=== PATIENT | female | born 1965 | race Caucasian/White ===

== ENCOUNTER 2019-06-21 10:09 | Observation (INO) | payer BC ==
[2019-06-21] MEDS ORDERED: Ondansetron PF 4 MG/2 ML Vial ONE (10:36)
[2019-06-21 10:47] LABS: #Basophils 0.1 thou/uL (0.0-0.2); #Eosinphils 0.1 thou/uL (0.0-0.7); #Lymphocytes 1.9 thou/uL (1.20-3.40); %Basophils 0.6 % (0.0-1.0); %Eosinophils 0.5 % (0.0-10.0); %Lymphocytes 14.5 % (21.0-51.0); %Monocytes 7.6 % (0.0-10.0); %Neutrophils 76.8 % (42.0-75.0); Hemoglobin 19.2 g/dL (12.0-16.0); Mean Corpuscular HGB CONC 35.5 g/dL (32.0-36.0); Mean Corpuscular Hemoglobin 30.2 pg (27.0-31.0); Mean Corpuscular Volume 85.2 fL (78.0-98.0); Mean Platelet Volume 8.1 fL (7.4-10.4); Platelet Count 338 thou/uL (130-400); RBC Distribution Width 12.1 % (11.5-14.5); Red Blood Cell (RBC) Count 6.37 mill/uL (4.20-5.40)
[2019-06-21 11:19] LABS: ALT (SGPT) 16 U/L (8-55); AST (SGOT) 14 U/L (5-34); Albumin 4.9 g/dL (3.5-5.0); Alkaline Phosphatase 59 U/L (40-110); Anion Gap 34 mmol/L (10-20); BUN (Urea Nitrogen) 27 mg/dL (9.8-20.1); Bilirubin, Total 1.4 mg/dL (0.2-1.2); Calc. Creatinine Clearance 0 mL/min (70-130); Calcium 10.9 mg/dL (7.8-10.44); Carbon Dioxide 11 mmol/L (22-29); Chloride 88 mmol/L (98-107); Estimated GFR-MDRD 42; Globulin 2.9 g/dL (2.4-3.5); Glucose 302 mg/dL (70-105); Lipase 57 U/L (8-78); Potassium 3.5 mmol/L (3.5-5.1); Protein, Total 7.8 g/dL (6.0-8.3); Sodium 129 mmol/L (136-145)
[2019-06-21] MEDS ORDERED: Acetaminophen 325 MG TAB PO PRN (11:35)
[2019-06-21] MEDS ORDERED: Senokot S 8.6-50 MG TAB PO PRN (11:35)
[2019-06-21] MEDS ORDERED: Dextrose 50% Abboject 50 ML SYRINGE SLOW IVP PRN (11:39)
[2019-06-21] MEDS ORDERED: Dextrose 5% in Water 1,000 ML IV PRN (11:39)
[2019-06-21] MEDS ORDERED: Potassium Chloride 20 MEQ TAB ONE (12:00)
[2019-06-21 12:13] LABS: Phosphorus 3.5 mg/dL (2.3-4.7)
[2019-06-21] MEDS ORDERED: Insulin Regular 300 UNITS/3 ML VIAL SC PRN (13:15)
[2019-06-21] MEDS: Sodium Chloride 0.9% 1,000 ML IV SCH ×2 (14:04→20:20)
[2019-06-21] MEDS ORDERED: traZODone HCl 50 MG TAB PO PRN (14:16)
[2019-06-21 14:27] LABS: Lactic Acid 1.8 mmol/L (0.5-2.2)
[2019-06-21] MEDS: Ondansetron PF 4 MG/2 ML Vial IVP PRN (15:31)
--- NOTE | 2019-06-21 16:25 | HP ---
CHIEF COMPLAINT: Nausea and vomiting of 5-day duration. HISTORY OF PRESENT ILLNESS: A 54-year-old female with a history of hyperlipidemia and type 2 diabetes mellitus, had nausea and vomiting of 5-day duration. Initially, she had 3 bowel movements followed by nausea of 5 days duration. No sick contact. No fever or productive cough or general body ache. In the ER, initially, she was tachycardic with pulse of 125. She was normotensive and afebrile. Her lactic acid was 2.5, severely dehydrated, and creatinine 1.3 and hemoconcentrated at hemoglobin of 19.2. She had severe metabolic acidosis. Her blood glucose was 302. She will be admitted for further management. REVIEW OF SYSTEMS: As explained above. She had nausea and vomiting, but no fever. She did not have any headache or blurriness. Her initial diarrhea resolved, but then she was not taking any p.o. intake in the last few days due to nausea sensation. She denied any chest pain, productive cough, orthopnea, PND, or lower extremity edema. No headache or blurriness. No rash in the body. A 13-point review of systems reviewed and pertinent addressed here in the history of present illness. Rest are negative. ALLERGIES: SHE HAS NO KNOWN DRUG ALLERGY. MEDICAL HISTORY: 1. Type 2 diabetes mellitus. 2. Hyperlipidemia. HOME MEDICATIONS: Not updated, but she stated that she is on glipizide, Bydureon, Tradjenta, antidepressant, and trazodone. SOCIAL HISTORY: She smokes daily, less than half a pack a day. No alcohol use. Lives with her family. FAMILY HISTORY: Father of brain tumor. Mother of old age. PHYSICAL EXAMINATION: VITAL SIGNS: Her temperature is 98, pulse is 92, blood pressure 145/76, and saturating 98% on room air. GENERAL: The patient is alert and oriented. She looks very dry, but very pleasant and nontoxic appearing. HEART: Tachycardia with a regular rate and rhythm. LUNGS: Clear to auscultation bilaterally. No wheezing, rales, or rhonchi. ABDOMEN: Soft, nontender, and nondistended. Good bowel sounds. EXTREMITIES: Without any pitting edema or rash. LABORATORY DATA: WBC 13, hemoglobin 19.2, and platelets 338. Chemistry: Total bilirubin of 1.4, sodium 129, potassium 3.5, bicarb is 11, chloride 88, and creatinine 1.3. Lactic acid 2.5. TSH is 0.67. LFTs are in the normal range. IMPRESSION AND PLAN: This is a 54-year-old female, presenting with a systemic inflammatory response syndrome secondary to ketotic hyperglycemia. 1. Metabolic acidosis without diabetic ketoacidosis. 2. Pseudohyponatremia. 3. Hypokalemia. 4. Hemoconcentration secondary to dehydration. 5. Leukocytosis due to stress demargination. 6. Acute kidney injury. 7. Type 2 diabetes mellitus. I believe her presentation is mostly secondary to severe dehydration due to nausea/vomiting, causing hemoconcentration and acute kidney injury. We will challenge with IV fluid and correct the electrolytes as needed. We will repeat the BMP panel this evening. Likely to improve. Meanwhile, we will start her on a sliding scale insulin and hold her glipizide, Bydureon, and Tradjenta for now. Provide her trazodone, home regimen, for bedtime. Hyperbilirubinemia. LFTs are in the normal range. I believe it is probably reflective of dehydration. Rest of the management based on the clinical course. Deep vein thrombosis prophylaxis with Lovenox. Job ID: [id number] MTDD
[2019-06-21] MEDS ORDERED: Insulin Regular 300 UNITS/3 ML VIAL SC SCH (17:00)
[2019-06-21 18:36] LABS: Anion Gap 17 mmol/L (10-20); BUN (Urea Nitrogen) 22 mg/dL (9.8-20.1); Calc. Creatinine Clearance 65 mL/min (70-130); Calcium 8.9 mg/dL (7.8-10.44); Carbon Dioxide 22 mmol/L (22-29); Chloride 99 mmol/L (98-107); Estimated GFR-MDRD 65; Glucose 184 mg/dL (70-105); Potassium 3.8 mmol/L (3.5-5.1); Sodium 134 mmol/L (136-145)
[2019-06-21] MEDS: Mag-Al Plus 1200 MG/1200 MG/120 MG/30 ML UDCUP PO PRN (21:18)
[2019-06-22] MEDS ORDERED: Famotidine/PF 20 mg/2ml Vial SLOW IVP SCH (00:30)
[2019-06-22] MEDS ORDERED: Lidocaine 2% Viscous Solution 10 ML, Aluminum & Magnesium Hydroxide 30 ML SSW SCH ×2 (00:45→19:15)
[2019-06-22] MEDS: Ondansetron PF 4 MG/2 ML Vial IVP PRN ×2 (00:59→15:36)
[2019-06-22 05:02] LABS: Hemoglobin A1c 7.2 % (4.0-6.0)
[2019-06-22 05:07] LABS: #Eosinphils 0.1 thou/uL (0.0-0.7); #Lymphocytes 2.2 thou/uL (1.20-3.40); #Monocytes 0.7 thou/uL (0.11-0.59); #Neutrophils 4.6 thou/uL (1.40-6.50); %Basophils 0.2 % (0.0-1.0); %Eosinophils 1.7 % (0.0-10.0); %Monocytes 8.7 % (0.0-10.0); %Neutrophils 60.5 % (42.0-75.0); Hemoglobin 15.7 g/dL (12.0-16.0); Mean Corpuscular Hemoglobin 30.2 pg (27.0-31.0); Mean Corpuscular Volume 86.3 fL (78.0-98.0); Platelet Count 198 thou/uL (130-400); RBC Distribution Width 11.8 % (11.5-14.5); Red Blood Cell (RBC) Count 5.19 mill/uL (4.20-5.40); White Blood Cell (WBC) Count 7.6 thou/uL (4.8-10.8)
[2019-06-22 05:20] LABS: Anion Gap 13 mmol/L (10-20); BUN (Urea Nitrogen) 19 mg/dL (9.8-20.1); Calc. Creatinine Clearance 77 mL/min (70-130); Calcium 8.1 mg/dL (7.8-10.44); Carbon Dioxide 23 mmol/L (22-29); Chloride 102 mmol/L (98-107); Estimated GFR-MDRD 79; Glucose 167 mg/dL (70-105); Magnesium 1.9 mg/dL (1.6-2.6); Potassium 3.3 mmol/L (3.5-5.1); Sodium 135 mmol/L (136-145)
[2019-06-22] MEDS ORDERED: Insulin Regular 300 UNITS/3 ML VIAL SC PRN ×2 (06:11)
[2019-06-22] MEDS ORDERED: Potassium Chloride 20 MEQ TAB PO SCH (08:45)
[2019-06-22] MEDS ORDERED: FLU VACC QS2019-20(6MOS UP)/PF 60 MCG/0.5 ML SYRINGE IM ONE (09:00)
[2019-06-22 09:22] LABS: CO2 Tension (PvCO2) 21.2 mmHg (40.0-50.0)
[2019-06-22 09:23] LABS: Base Excess-Venous -5.9 mmol/L (-2.0 to 3.0); Bicarbonate (HCO3v) 15.1 mmol/L (22.0-28.0); Calcium, Ionized 1.11 mmol/L (See Comments:); Chloride 94 mmol/L (98-107); Hemoglobin - Calc 17.3 g/dL (12.0-16.0); Potassium 3.3 mmol/L (3.5-5.1); Sodium 126 mmol/L (138-145); T. Carbon Dioxide 15.8 mmol/L (22.0-28.0); vO2 Saturation-calc 67.6 % (60.0-85.0)
--- NOTE | 2019-06-22 12:25 | PDOC.HOSPP ---
- Subjective Encounter Date: 06/22/19 Encounter Time: 08:30 Subjective: pt is sleeping, states that she did not had good rest o/n. but feels better than when she came. lytes are getting better. - Objective Vital Signs & Weight: Vital Signs (12 hours) Temp Pulse Resp BP Pulse Ox 06/22/19 11:58 98.2 F 97 19 154/74 H 100 06/22/19 06:50 97.9 F 83 16 150/82 H 98 06/22/19 04:00 98.7 F 88 16 145/81 H 98 Weight Admit Weight 130 lb Weight 130 lb I&O: 06/21/19 06/22/19 06/23/19 06:59 06:59 06:59 Intake Total 2449 Output Total 700 Balance 1749 Result Diagrams: 06/22/19 04:32 06/22/19 04:32 Hospitalist ROS - Medication Medications: Active Medications Generic Name Dose Route Start Last Admin Trade Name Freq PRN Reason Stop Dose Admin Al Hydroxide/Mg Hydroxide 30 ml 06/21/19 15:52 06/21/19 21:18 Maalox Plus PO 30 ml DAILYPRN PRN Administration Heartburn or Indigestion Insulin Human Regular 0 units 06/22/19 06:11 06/22/19 06:39 Humulin R SC 2 unit .MILD SLIDING SCALE PRN Administration Mild Correctional Scale Ondansetron HCl 4 mg 06/21/19 11:35 06/22/19 00:59 Zofran IVP 4 mg Q6H PRN Administration Nausea/Vomiting Pantoprazole Sodium 40 mg 06/22/19 09:00 06/22/19 08:21 Protonix PO 40 mg DAILY ASPEN Administration - Exam General Appearance: NAD, awake alert Eye: PERRL ENT: normocephalic atraumatic Neck: supple Heart: RRR, normal peripheral pulses Respiratory: CTAB, normal chest expansion Gastrointestinal: soft, normal bowel sounds Hosp A/P - Plan nausea/vomiting Hyperglycemia -n SSI Metabolic acidosis---improved Hyponatremia, pseudo--resolved. Hypokalemia Hemo concn..---reswolved TERRI--resolved Advance the diet monitor for another 24hr, if better, plan for dc in am.
[2019-06-22] MEDS: Mag-Al Plus 1200 MG/1200 MG/120 MG/30 ML UDCUP PO PRN (13:01)
[2019-06-22 15:40] VITALS: BMI 22.4
[2019-06-22] MEDS ORDERED: Promethazine HCl 12.5 MG in Sodium Chloride 0.9% 50 ML IVPB PRN (19:10)
[2019-06-23 04:17] LABS: #Basophils 0.1 thou/uL (0.0-0.2); #Eosinphils 0.1 thou/uL (0.0-0.7); #Lymphocytes 2.5 thou/uL (1.20-3.40); #Monocytes 0.6 thou/uL (0.11-0.59); #Neutrophils 3.7 thou/uL (1.40-6.50); %Eosinophils 1.3 % (0.0-10.0); %Monocytes 8.1 % (0.0-10.0); %Neutrophils 53.7 % (42.0-75.0); Hemoglobin 17.1 g/dL (12.0-16.0); Mean Corpuscular HGB CONC 34.4 g/dL (32.0-36.0); Mean Corpuscular Hemoglobin 29.7 pg (27.0-31.0); Mean Corpuscular Volume 86.4 fL (78.0-98.0); Mean Platelet Volume 8.5 fL (7.4-10.4); Platelet Count 202 thou/uL (130-400); RBC Distribution Width 11.9 % (11.5-14.5); Red Blood Cell (RBC) Count 5.75 mill/uL (4.20-5.40); White Blood Cell (WBC) Count 6.9 thou/uL (4.8-10.8)
[2019-06-23 04:34] LABS: Anion Gap 13 mmol/L (10-20); BUN (Urea Nitrogen) 12 mg/dL (9.8-20.1); Calc. Creatinine Clearance 85 mL/min (70-130); Calcium 8.7 mg/dL (7.8-10.44); Carbon Dioxide 27 mmol/L (22-29); Chloride 101 mmol/L (98-107); Estimated GFR-MDRD 88; Glucose 172 mg/dL (70-105); Sodium 138 mmol/L (136-145)
--- NOTE | 2019-06-23 10:47 | PDOC.HOSPP ---
- Subjective Encounter Date: 06/23/19 Encounter Time: 10:45 Subjective: Ms. Palacio was seen today in follow-up of nausea and vomiting. she says she feels much better today. she was able to tolerate clear liquids this morning. - Objective Vital Signs & Weight: Vital Signs (12 hours) Temp Pulse Resp BP BP Pulse Ox 06/23/19 08:16 98.0 F 102 H 16 146/70 H 99 06/23/19 05:15 99.2 F 104 H 16 138/75 100 06/23/19 00:00 99.1 F 88 16 143/83 H 100 Weight Admit Weight 130 lb Weight 131 lb I&O: 06/22/19 06/23/19 06/24/19 06:59 06:59 06:59 Intake Total 2449 1091 Output Total 700 150 Balance 1749 941 Result Diagrams: 06/23/19 03:37 06/23/19 03:37 Hospitalist ROS - Medication Medications: Active Medications Generic Name Dose Route Start Last Admin Trade Name Freq PRN Reason Stop Dose Admin Al Hydroxide/Mg Hydroxide 30 ml 06/21/19 15:52 06/22/19 13:01 Maalox Plus PO 30 ml DAILYPRN PRN Administration Heartburn or Indigestion Promethazine HCl 12.5 mg/ 50.5 mls @ 202 mls/hr 06/22/19 19:10 06/22/19 21:21 Sodium Chloride IVPB 50.5 mls Q6H PRN Administration Nausea Insulin Human Regular 0 units 06/22/19 06:11 06/22/19 06:39 Humulin R SC 2 unit .MILD SLIDING SCALE PRN Administration Mild Correctional Scale Ondansetron HCl 4 mg 06/21/19 11:35 06/22/19 15:36 Zofran IVP 4 mg Q6H PRN Administration Nausea/Vomiting Pantoprazole Sodium 40 mg 06/22/19 09:00 06/23/19 08:33 Protonix PO 40 mg DAILY ASPEN Administration Trazodone HCl 50 mg 06/21/19 14:16 06/22/19 22:16 Desyrel PO 50 mg HS PRN Administration Insomnia - Exam Eye: PERRL Heart: RRR, no murmur, no gallops, no rubs, normal peripheral pulses Respiratory: CTAB, no wheezes, no rales, no ronchi, normal chest expansion Gastrointestinal: soft, non-tender, non-distended, normal bowel sounds, no palpable masses, no hepatomegaly Extremities: no cyanosis, no edema Hosp A/P (1) Nausea & vomiting Code(s): R11.2 - NAUSEA WITH VOMITING, UNSPECIFIED Status: Acute (2) Polycythemia Code(s): D75.1 - SECONDARY POLYCYTHEMIA Status: Acute (3) Diabetes mellitus type 2 in nonobese Code(s): E11.9 - TYPE 2 DIABETES MELLITUS WITHOUT COMPLICATIONS Status: Acute - Plan * Nausea and vomiting- resolving- this may have been due to a viral illness, or she may have a mild case of gastroparesis- this has improved- will advance her diet. ( She also admits to occasional marijuana use) * DM- blood glucose has improved * Elevated HGB- this has begun to rise again- will check a JAKS mutation- for Polycythemia ( she tells me she does not smoke) and have her follow-up with this as an outpatient . This was discussed with the patient * Hopefully home later today
--- NOTE | 2019-06-23 13:43 | CON ---
DATE OF CONSULTATION: 06/23/2019 REASON FOR CONSULTATION: Persistent nausea and vomiting. HISTORY OF PRESENT ILLNESS: Ms. Rosi Palacio is a very pleasant 54-year-old female with history of diabetes mellitus and hyperlipidemia since 2011. The patient does see Celsa Hall, who works under Dr. Jack Mandel on a regular basis. The patient's diabetes is well controlled. The patient developed nausea, vomiting, and diarrhea a week ago. She had multiple loose stools. She also had nausea and vomiting. She was seen by Dr. Nemesio Groves the following day and was given some medications for diarrhea. Her diarrhea quit subsequently. However, she over the weekend started having nausea and vomiting again. She came to the ER and hospitalized on Friday. Her lab data does show some acidosis. The patient had no abdominal pain, no fever, and no chills. Her diarrhea stopped completely. The patient has had nausea and vomiting since admission. She is on Phenergan IV for nausea and vomiting. She did have nausea and vomiting yesterday. However, since last night, she has had no more nausea and no more vomiting. She is tolerating a diet. She has no abdominal pain whatsoever. No similar episodes in the past. She had no recent travel outside the country. No recent antibiotic intake. Today, she states she is feeling better for the first time and no nausea or vomiting. However, she feels unreal, sleepy, and dizzy and mostly is on medication. She had breakfast this morning and started eating in lunch time. She is eating well. No relevant history. ALLERGIES: NONE. SOCIAL HISTORY: The patient does not smoke or drink alcohol. MEDICAL ILLNESSES: 1. Diabetes mellitus. 2. Hyperlipidemia. 3. No hypertension, heart disease, or lung disease. SURGERIES: Status post appendectomy. FAMILY HISTORY: Father of brain tumor. He had diabetes mellitus. No family history of any IBD, colon cancer, CVS, or heart disease. MEDICATIONS: Reviewed. REVIEW OF SYSTEMS: A 10-point system review is, CONSTITUTIONAL: No history of fever or chills. No weight loss. She has good exercise tolerance. HEAD: No chronic headache. No dizziness. EYES: No impaired vision. No diplopia. EARS: No hearing loss. No ear discharge. NOSE: No nose bleed. THROAT: No sore throat or dysphagia. NECK: No stiffness or limitation of movement. LUNGS: No chronic coughing. No hemoptysis. No dyspnea. CARDIOVASCULAR SYSTEM: No chest pain. No palpitation. No dyspnea, orthopnea, or PND. GASTROINTESTINAL: No nausea, vomiting, or diarrhea. No abdominal pain. No hematochezia. GENITOURINARY: Nonrelevant. MUSCULOSKELETAL: Nonrelevant. NEUROENDOCRINE: Nonrelevant. NEUROPSYCHIATRY: Nonrelevant. PHYSICAL EXAMINATION: GENERAL: She is a very pleasant, woman, appears very comfortable. VITAL SIGNS: Stable and afebrile. Her pulse is 100, blood pressure is 131/70. HEENT: Conjunctivae are clear. NECK: Supple. No adenitis or thyromegaly noted. CARDIOVASCULAR SYSTEM: First and second heart sounds heard. LUNGS: Clear to auscultation. ABDOMEN: Soft and nondistended. Abdomen is nontender. No organomegaly. No masses. EXTREMITIES: Reveal no edema. LABORATORY DATA: From today, WBC has come down to 6900, hemoglobin down to 17.1 from 19.2, hematocrit 49.7, MCV 86.4, platelet count 202,000, polymorphs 53, lymphocytes 36, monocytes 8. Chem panel, her glucose is 172. Lytes are normal except for potassium 3.3, chloride 101, calcium 8.7. CLINICAL IMPRESSION: 1. A 54-year-old woman with diabetes mellitus and hyperlipidemia. She had also nausea, vomiting, and diarrhea. She has no abdominal pain. No history of any fever or chills. The patient's diarrhea resolved after 24 hours. Her nausea and vomiting continued over the weekend. She was hospitalized on Friday and since yesterday evening, she is actually feeling better. She is not having more nausea and more vomiting. No abdominal pain anymore. Abdomen exam is very benign. Based on the history and physical examination, it appears to be mostly a viral illness that is probably the cause of diarrhea, nausea, and vomiting. 2. Diabetes mellitus. 3. Hyperlipidemia. RECOMMENDATIONS: 1. Diet as tolerated. 2. If she is feeling better and no more nausea or vomiting, from GI standpoint, she can go home. If she has recurrence of symptoms, I would be happy to see her back again. If she does well with her nausea and vomiting, she can probably go home tomorrow. I did talk to Ms. Palacio of having a colonoscopy at a later date for colorectal cancer screening. This will be done in the next few months as an outpatient. Job ID: [id number]
[2019-06-23] MEDS ORDERED: Potassium Chloride 20 MEQ TAB PO SCH (15:15)
--- NOTE | 2019-06-23 15:40 | DIS ---
DATE OF ADMISSION: 06/21/2019 DATE OF DISCHARGE: 06/23/2019 DISCHARGE DISPOSITION: Home. DISCHARGE DIAGNOSES: 1. Probable viral gastroenteritis. 2. Elevated hemoglobin, unknown significance. 3. Diabetes mellitus type 2. 4. Hyperlipidemia. 5. Hypokalemia. DISCHARGE MEDICATIONS: Include: 1. Potassium chloride 20 mEq p.o. daily. 2. Magnesium oxide 400 mg p.o. daily. 3. Trazodone 50 mg as needed. 4. Simvastatin 10 mg daily. 5. Promethazine 25 mg p.r.n. 6. Zofran 4 mg q.8h as needed. 7. Tradjenta 5 mg daily. 8. Dapagliflozin 10 mg p.o. daily. 9. Exenatide 2 mg q.7 days. 10. Glipizide 10 mg p.o. daily. CODE STATUS: Full code. ALLERGIES: NO KNOWN DRUG ALLERGIES. HOSPITAL COURSE: Ms. Palacio is a pleasant 54-year-old female, who was admitted to the hospital with complaints of nausea and vomiting for approximately five days. She called her primary care physician, who was concerned about the length of time that she was having her symptoms and recommended that she go to the ER for evaluation. She was admitted and started on IV fluids as well as IV antiemetics. It was noted in her lab work that her hemoglobin was elevated at 19.2. This was thought to be due to hemoconcentration. The following day, it decreased down to 15.7, but after hydration the following day, it went back up to 17.1. In review of her records, approximately a year ago, it was 17.5 in September of 2018. For this reason, we sent off a JAK2 mutation panel, which she will follow up with Dr. Groves in the outpatient setting. It is also noted that the patient denies any smoking history. The nausea and vomiting got better by the third day in the hospital. She was able to tolerate solid diet. On further questioning, the patient admits to using marijuana periodically and it is possible that this could have contributed to her symptoms and also, she is diabetic and may have had some mild gastroparesis, but it felt that this was likely an infectious origin. The patient is being discharged home today to have close followup with Dr. Groves. Job ID: [id number]
[2019-06-23 16:49] VITALS: BP 142/74; TEMP 98.4
--- NOTE | 2019-06-24 11:12 | EKG ---
Test Reason : Blood Pressure : / mmHG Vent. Rate : 106 BPM Atrial Rate : 106 BPM P-R Int : 120 ms QRS Dur : 082 ms QT Int : 428 ms P-R-T Axes : 050 020 075 degrees QTc Int : 568 ms Sinus tachycardia Nonspecific ST abnormality Prolonged QT Abnormal ECG Confirmed by BRAYDON BELLA, YEISON Lambert ([id number]), image editor PHILL TERRY ([id number]) on 06/24/2019 11:12:33 AM Referred By: Confirmed By:YEISON BRYSON MD
== END 2019-06-23 17:01 | disposition home or self-care (01) ==
LOC: ERS 10:09 → ONC 13:32
PROVIDERS: ADMIT Internal Medicine; ATTEND Internal Medicine
DX: R11.2 Nausea with vomiting, unspecified (principal); E87.2 Acidosis; E86.0 Dehydration; E87.6 Hypokalemia; N17.9 Acute kidney failure, unspecified; E11.9 Type 2 diabetes mellitus without complications; E78.5 Hyperlipidemia, unspecified; D72.829 Elevated white blood cell count, unspecified; E78.00 Pure hypercholesterolemia, unspecified; F17.210 Nicotine dependence, cigarettes, uncomplicated; Z79.84 Long term (current) use of oral hypoglycemic drugs; Z79.899 Other long term (current) drug therapy
CPT/HCPCS: 36415; 36416; 80048; 80053; 81270; 82010; 82330; 82803; 83036; 83605; 83690; 83735; 84100; 84443; 85025; 93005; 96361; 96374; 96375; 96376; G0378; J1815; J2405; J2550; S0028

== ENCOUNTER 2021-01-09 11:19 | Outpatient (CLI) | payer BC | END 2021-01-09 11:20 | disposition home or self-care (01) | LOC: BICRAD 11:19 | PROVIDERS: ATTEND Family Medicine | DX: M25.562 Pain in left knee (principal) ==

== ENCOUNTER 2021-02-07 10:38 | Outpatient (CLI) | payer BC | END 2021-02-07 10:39 | disposition home or self-care (01) | LOC: BICMAMMO 10:38 | PROVIDERS: ATTEND Family Medicine | DX: Z12.31 Encounter for screening mammogram for malignant neoplasm of breast (principal); Z80.3 Family history of malignant neoplasm of breast | CPT/HCPCS: 77063; 77067 ==

== ENCOUNTER 2021-08-06 10:26 | Inpatient (IN) | payer BC ==
[~2021-08-06 10:26] MED LIST: Iopamidol-370 76% 500 ML 1 ML ONE
[2021-08-06 11:10] LABS: #Eosinphils 0.1 thou/uL (0.0-0.7); #Lymphocytes 1.4 thou/uL (1.20-3.40); #Monocytes 0.5 thou/uL (0.11-0.59); #Neutrophils 13.6 thou/uL (1.40-6.50); %Basophils 0.3 % (0.0-1.0); %Eosinophils 0.3 % (0.0-10.0); %Lymphocytes 8.7 % (21.0-51.0); %Neutrophils 87.7 % (42.0-75.0); Hemoglobin 16.9 g/dL (12.0-16.0); Mean Corpuscular HGB CONC 33.4 g/dL (32.0-36.0); Mean Corpuscular Hemoglobin 30.4 pg (27.0-31.0); Mean Corpuscular Volume 91.1 fL (78.0-98.0); Mean Platelet Volume 8.3 fL (7.4-10.4); Platelet Count 211 thou/uL (130-400); RBC Distribution Width 11.5 % (11.5-14.5); Red Blood Cell (RBC) Count 5.56 mill/uL (4.20-5.40); White Blood Cell (WBC) Count 15.5 thou/uL (4.8-10.8)
[2021-08-06 11:34] LABS: ALT (SGPT) 25 U/L (8-55); AST (SGOT) 20 U/L (5-34); Albumin 4.5 g/dL (3.5-5.0); Alkaline Phosphatase 53 U/L (40-110); Anion Gap 21 mmol/L (10-20); BUN (Urea Nitrogen) 25 mg/dL (9.8-20.1); Bilirubin, Total 1.4 mg/dL (0.2-1.2); Calc. Creatinine Clearance 0 mL/min (70-130); Calcium 10.6 mg/dL (7.8-10.44); Carbon Dioxide 20 mmol/L (22-29); Chloride 99 mmol/L (98-107); Globulin 3.4 g/dL (2.4-3.5); Glucose 237 mg/dL (70-105); Lipase 32 U/L (8-78); Potassium 3.6 mmol/L (3.5-5.1); Protein, Total 7.9 g/dL (6.0-8.3); Sodium 136 mmol/L (136-145)
[2021-08-06] MEDS ORDERED: Pantoprazole 40 MG VIAL ONE (12:02)
[2021-08-06] MEDS ORDERED: Ondansetron PF 4 MG/2 ML Vial ONE (12:02)
[2021-08-06 12:26] LABS: Bilirubin Negative (Negative); Blood, Urine Negative (Negative); Clarity Clear (Clear); Glucose, Urine (Dipstick) Greater than 1000 mg/dL (Negative); Ketone, Urine Greater than 150 mg/dL (Negative); Leukocyte Negative Leu/uL (Negative); Nitrite Negative (Negative); Protein, Urine (Dipstick) 10 mg/dL (Neg-Trace); Specific Gravity, Urine 1.038 (1.002-1.036); Urobilinogen Normal mg/dL (Less than 2); pH, Urine 6.5 (5.0-9.0)
[2021-08-06 12:48] LABS: Actual Bicarbonate (HCO3v) 18 mEq/L (22-28); Analyzer IN Cardio ER; Base Excess -0.3 mEq/L (-2.0 to +3.0); Calcium, Ionized (venous) 1.13 mmol/L (1.16-1.32); Chloride (VBG) 100 mmol/L (98-106); Hemoglobin (Hb) 17.6 g/dL (11.7-16.0); Potassium (VBG) 3.36 mmol/L (3.70-5.30); Sodium 137.3 mmol/L (133-146); pH (venous) 7.59 (7.32-7.43)
[2021-08-06 13:16] LABS: Phosphorus 2.4 mg/dL (2.3-4.7)
[2021-08-06 13:19] LABS: Magnesium 1.8 mg/dL (1.6-2.6)
[2021-08-06] MEDS ORDERED: metroNIDAZOLE 500 MG/100 ML BAG ONE (14:30)
[2021-08-06] MEDS ORDERED: Ciprofloxacin 500 MG TAB ONE (14:30)
[2021-08-06] MEDS ORDERED: Promethazine HCl 12.5 MG SUPP ONE (14:44)
[2021-08-06] MEDS ORDERED: Morphine 4 MG/ML VIAL ONE (14:44)
[2021-08-06] MEDS ORDERED: Promethazine HCl 12.5 MG in Sodium Chloride 0.9% 50 ML IVPB SCH (15:00)
[2021-08-06] MEDS ORDERED: Dextrose 5% in Water 1,000 ML IV PRN (16:02)
[2021-08-06] MEDS ORDERED: Dextrose 50% Abboject 50 ML SYRINGE SLOW IVP PRN (16:02)
[2021-08-06] MEDS ORDERED: HumaLOG 300 UNITS/3 ML VIAL SC PRN (16:02)
[2021-08-06] MEDS ORDERED: Ondansetron PF 4 MG/2 ML Vial IVP PRN (16:05)
[2021-08-06] MEDS ORDERED: Acetaminophen 650 MG Suppository PR PRN (16:05)
[2021-08-06] MEDS ORDERED: Ondansetron ODT 4 MG TAB PO PRN (16:05)
[2021-08-06] MEDS ORDERED: Acetaminophen 325 MG TAB PO PRN (16:05)
[2021-08-06 16:09] LABS: Lactic Acid 2.2 mmol/L (0.5-2.2)
[2021-08-06 16:52] VITALS: BMI 23.3
[2021-08-06] MEDS ORDERED: Electrolyte Replacement Protocol FS PRN (17:00)
[2021-08-06] MEDS ORDERED: Potassium Chloride 40 MEQ in Sodium Chloride 0.9% 250 ML 250 ML IVPB SCH (17:00)
[2021-08-06] MEDS ORDERED: Magnesium 2 GM/50 ML(in water) 2 GM in Premix Bag 1 BAG IVPB SCH (17:00)
[2021-08-06] MEDS ORDERED: Electrolyte Replacement Protocol 1 EACH FS SCH (17:00)
[2021-08-06 17:08] LABS: Magnesium 1.6 mg/dL (1.6-2.6); Phosphorus 3.2 mg/dL (2.3-4.7)
[2021-08-06] MEDS: Sodium Chloride 0.9% 1,000 ML IV SCH ×2 (17:20→20:48)
[2021-08-06] MEDS ORDERED: Magnesium 2 GM/50 ML(in water) 2 GM in Premix Bag 1 BAG IVPB ONE (17:27)
[2021-08-06 17:59] LABS: SARS-CoV-2 NAA Rapid Test Not Detected (NotDetected)
[2021-08-06 19:08] LABS: Hemoglobin 13.4 g/dL (12.0-16.0)
[2021-08-06] MEDS: Ciprofloxacin 500 MG TAB PO SCH (20:20)
[2021-08-06] MEDS: Pantoprazole 40 MG VIAL IVP SCH (20:20)
[2021-08-06] MEDS: metroNIDAZOLE 500 MG in Premix Bag 1 BAG IVPB SCH (20:34)
[2021-08-07] MEDS: Sodium Chloride 0.9% 1,000 ML IV SCH (03:38)
[2021-08-07] MEDS: metroNIDAZOLE 500 MG in Premix Bag 1 BAG IVPB SCH ×3 (03:45→22:19)
[2021-08-07] MEDS: Ciprofloxacin 500 MG TAB PO SCH (04:59)
[2021-08-07] MEDS ORDERED: Fleet Enema 133 ML BOT PR SCH (06:00)
[2021-08-07 06:22] LABS: #Eosinphils 0.1 thou/uL (0.0-0.7); #Lymphocytes 1.7 thou/uL (1.20-3.40); #Monocytes 0.5 thou/uL (0.11-0.59); #Neutrophils 6.2 thou/uL (1.40-6.50); %Basophils 0.4 % (0.0-1.0); %Eosinophils 0.6 % (0.0-10.0); %Lymphocytes 19.6 % (21.0-51.0); %Monocytes 6.3 % (0.0-10.0); %Neutrophils 73.1 % (42.0-75.0); Hemoglobin 13.9 g/dL (12.0-16.0); Mean Corpuscular HGB CONC 33.4 g/dL (32.0-36.0); Mean Corpuscular Hemoglobin 31.5 pg (27.0-31.0); Mean Corpuscular Volume 94.1 fL (78.0-98.0); Mean Platelet Volume 8.5 fL (7.4-10.4); Platelet Count 147 thou/uL (130-400); RBC Distribution Width 11.6 % (11.5-14.5); Red Blood Cell (RBC) Count 4.41 mill/uL (4.20-5.40); White Blood Cell (WBC) Count 8.5 thou/uL (4.8-10.8)
[2021-08-07 06:47] LABS: Anion Gap 9 mmol/L (10-20); BUN (Urea Nitrogen) 19 mg/dL (9.8-20.1); Calc. Creatinine Clearance 78 mL/min (70-130); Calcium 8.2 mg/dL (7.8-10.44); Carbon Dioxide 26 mmol/L (22-29); Chloride 108 mmol/L (98-107); Glucose 174 mg/dL (70-105); Potassium 4.2 mmol/L (3.5-5.1); Sodium 139 mmol/L (136-145)
[2021-08-07] MEDS ORDERED: Lactated Ringer's 1,000 ML IV SCH (08:45)
[2021-08-07] MEDS ORDERED: Simvastatin 10 MG TAB PO SCH (09:00)
[2021-08-07] MEDS: Pantoprazole 40 MG VIAL IVP SCH ×2 (09:09→20:05)
[2021-08-07] MEDS ORDERED: PROPOFOL 200 MG/20 ML VIAL ONE (10:46)
[2021-08-07] MEDS: HumaLOG 300 UNITS/3 ML VIAL SC PRN (16:42)
[2021-08-07] MEDS: Gabapentin 300 MG CAP PO SCH (20:05)
[2021-08-07] MEDS: traZODone HCl 50 MG TAB PO PRN (20:22)
[2021-08-08] MEDS: metroNIDAZOLE 500 MG in Premix Bag 1 BAG IVPB SCH (05:06)
[2021-08-08] MEDS: HumaLOG 300 UNITS/3 ML VIAL SC PRN ×3 (05:33→16:50)
[2021-08-08 06:06] LABS: #Eosinphils 0.2 thou/uL (0.0-0.7); #Lymphocytes 1.9 thou/uL (1.20-3.40); #Monocytes 0.3 thou/uL (0.11-0.59); #Neutrophils 3.5 thou/uL (1.40-6.50); %Basophils 0.7 % (0.0-1.0); %Eosinophils 2.6 % (0.0-10.0); %Lymphocytes 32.5 % (21.0-51.0); %Monocytes 5.4 % (0.0-10.0); %Neutrophils 58.8 % (42.0-75.0); Hemoglobin 14.9 g/dL (12.0-16.0); Mean Corpuscular HGB CONC 33.7 g/dL (32.0-36.0); Platelet Count 147 thou/uL (130-400); RBC Distribution Width 11.4 % (11.5-14.5); Red Blood Cell (RBC) Count 4.79 mill/uL (4.20-5.40); White Blood Cell (WBC) Count 5.9 thou/uL (4.8-10.8)
[2021-08-08 06:35] LABS: Anion Gap 10 mmol/L (10-20); BUN (Urea Nitrogen) 16 mg/dL (9.8-20.1); Calc. Creatinine Clearance 80 mL/min (70-130); Calcium 8.5 mg/dL (7.8-10.44); Carbon Dioxide 26 mmol/L (22-29); Chloride 110 mmol/L (98-107); Glucose 182 mg/dL (70-105); Potassium 3.6 mmol/L (3.5-5.1); Sodium 142 mmol/L (136-145)
[2021-08-08] MEDS: Stress 600 With Zinc 1 TAB PO SCH (08:36)
[2021-08-08] MEDS: Pantoprazole 40 MG VIAL IVP SCH (08:36)
[2021-08-08] MEDS ORDERED: Empagliflozin 25 MG TAB PO SCH (14:00)
[2021-08-08] MEDS: metroNIDAZOLE 500 MG TAB PO SCH ×2 (14:35→22:27)
[2021-08-08] MEDS ORDERED: Escitalopram Oxalate 20 mg Tablet PO SCH (21:00)
[2021-08-08] MEDS: Gabapentin 300 MG CAP PO SCH (22:27)
[2021-08-08] MEDS: Ciprofloxacin 500 MG TAB PO SCH (22:27)
[2021-08-08] MEDS: traZODone HCl 50 MG TAB PO PRN (22:36)
[2021-08-09] MEDS: Ciprofloxacin 500 MG TAB PO SCH (05:39)
[2021-08-09] MEDS: HumaLOG 300 UNITS/3 ML VIAL SC PRN (06:11)
[2021-08-09 07:16] LABS: #Eosinphils 0.4 thou/uL (0.0-0.7); #Lymphocytes 1.8 thou/uL (1.20-3.40); #Monocytes 0.3 thou/uL (0.11-0.59); %Basophils 0.7 % (0.0-1.0); %Eosinophils 6.5 % (0.0-10.0); %Lymphocytes 33.3 % (21.0-51.0); %Monocytes 5.5 % (0.0-10.0); Hemoglobin 15.5 g/dL (12.0-16.0); Mean Corpuscular HGB CONC 34.9 g/dL (32.0-36.0); Mean Corpuscular Hemoglobin 32.2 pg (27.0-31.0); Mean Corpuscular Volume 92.3 fL (78.0-98.0); Mean Platelet Volume 8.3 fL (7.4-10.4); Platelet Count 142 thou/uL (130-400); RBC Distribution Width 11.5 % (11.5-14.5); Red Blood Cell (RBC) Count 4.81 mill/uL (4.20-5.40); White Blood Cell (WBC) Count 5.5 thou/uL (4.8-10.8)
[2021-08-09 07:40] LABS: Anion Gap 12 mmol/L (10-20); BUN (Urea Nitrogen) 17 mg/dL (9.8-20.1); Calc. Creatinine Clearance 72 mL/min (70-130); Calcium 8.8 mg/dL (7.8-10.44); Carbon Dioxide 27 mmol/L (22-29); Chloride 107 mmol/L (98-107); Glucose 172 mg/dL (70-105); Sodium 142 mmol/L (136-145)
[2021-08-09] MEDS: metroNIDAZOLE 500 MG TAB PO SCH (08:11)
[2021-08-09] MEDS: Stress 600 With Zinc 1 TAB PO SCH (08:11)
[2021-08-09] MEDS ORDERED: Empagliflozin 25 MG TAB PO SCH (09:00)
[2021-08-09] MEDS ORDERED: Floranex 1 GM Packet PO SCH (09:00)
[2021-08-09 12:16] VITALS: BP 127/89; TEMP 98
== END 2021-08-09 11:19 | disposition home or self-care (01) | DRG 368 ==
LOC: ERS 10:26 → T4-A 14:46
PROVIDERS: ADMIT Family Medicine; ATTEND Family Medicine
PROC: 0DJD8ZZ Inspection of Lower Intestinal Tract, Via Natural or Artificial Opening Endoscopic (ICD-10-PCS; principal; 2021-08-07)
DX: K22.6 Gastro-esophageal laceration-hemorrhage syndrome (principal); A41.9 Sepsis, unspecified organism; E87.2 Acidosis; A09 Infectious gastroenteritis and colitis, unspecified; Z20.822 Contact with and (suspected) exposure to COVID-19; K44.9 Diaphragmatic hernia without obstruction or gangrene; E11.9 Type 2 diabetes mellitus without complications; E78.00 Pure hypercholesterolemia, unspecified; E86.0 Dehydration; E11.65 Type 2 diabetes mellitus with hyperglycemia; F32.A Depression, unspecified; E78.5 Hyperlipidemia, unspecified; M19.90 Unspecified osteoarthritis, unspecified site; Z79.84 Long term (current) use of oral hypoglycemic drugs; Z90.49 Acquired absence of other specified parts of digestive tract; Z79.899 Other long term (current) drug therapy
CPT/HCPCS: 36415; 36416; 74177; 80048; 80053; 81003; 82010; 82274; 82805; 83605; 83630; 83690; 83735; 84100; 85025; 87040; 87045; 87046; 87149; 87427; 87449; 94760; 96365; 96367; 96375; C9113; J0744; J1815; J2270; J2405; J2550; J2704; J3475; J3480; J7050; J7120; Q9967

== ENCOUNTER 2022-12-13 10:40 | Outpatient (CLI) | payer BC | END 2022-12-13 10:41 | disposition home or self-care (01) | LOC: BICMAMMO 10:40 | PROVIDERS: ATTEND Physician Assistant | DX: Z12.31 Encounter for screening mammogram for malignant neoplasm of breast (principal); Z80.3 Family history of malignant neoplasm of breast | CPT/HCPCS: 77063; 77067 ==